=== PATIENT | female | born 1945 | race Asian ===

== ENCOUNTER 2023-02-27 13:28 | Inpatient (IN) | payer MEDICARE, MEDICAID ==
[~2023-02-27] VITALS: Ht 154.7 cm; Wt 56.6 kg
[2023-02-27] MEDS ORDERED: AMLO-257 PO (13:59)
[2023-02-27] MEDS ORDERED: PRAM0.258 PO (13:59)
[2023-02-27] MEDS ORDERED: LOSA-382 PO (13:59)
[2023-02-27] MEDS ORDERED: FURO20TA4 PO (14:03)
[2023-02-27] MEDS ORDERED: AMLO10TA55 PO (14:03)
[2023-02-27] MEDS ORDERED: CLON0.1T2 PO (14:03)
[2023-02-27] MEDS ORDERED: CARB1TAB33 PO (14:03)
[2023-02-27] MEDS ORDERED: PRAM1TAB7 PO (14:03)
[2023-02-27] MEDS ORDERED: GABA-529 PO (14:03)
[2023-02-27] MEDS ORDERED: ESCI-8 PO (14:03)
[2023-02-27] MEDS ORDERED: ATOR10TA69 PO (14:03)
[2023-02-27] MEDS ORDERED: SODIUM CHLORIDE 0.9% 1,000 ML IV ONE (14:45)
[2023-02-27 14:58] LABS: BASOPHILS % (AUTO) 1.1 % (0.0-2.0); EOSINOPHILS % (AUTO) 3.3 % (1.0-6.0); HEMATOCRIT 39.7 % (36-46); HEMOGLOBIN 13.5 g/dL (12.0-16.0); LYMPHOCYTES # (AUTO) 1.5 K/uL (1.0-4.8); LYMPHOCYTES % (AUTO) 20.3 % (22.0-44.0); MEAN CORPUSCULAR HEMOGLOBIN 32.3 pg (26.0-34.0); MEAN CORPUSCULAR VOLUME 95 fL (80-100); MONOCYTES # (AUTO) 0.5 K/uL (0.1-1.0); MONOCYTES % (AUTO) 6.3 % (2.0-9.0); NEUTROPHILS # (AUTO) 5.1 K/uL (1.8-7.7); PLATELET COUNT (AUTO) 159 K/uL (150-450); RED BLOOD CELL COUNT(AUTO) 4.18 MIL/uL (4.00-5.20); RED CELL DISTRIBUTION WIDTH 12.4 % (11.5-14.5)
[2023-02-27] MEDS ORDERED: BISACODYL 10 MG RECTAL RECTAL SUPPOSITORY PR PRN (15:00)
[2023-02-27] MEDS ORDERED: ONDANSETRON HCL 4 MG/2 ML VIAL IVP PRN (15:00)
[2023-02-27] MEDS ORDERED: ACETAMINOPHEN 325 MG TABLET PO PRN (15:00)
[2023-02-27 15:03] LABS: COVID AG,FIA SOURCE NASOPHARYNGEAL
[2023-02-27 15:10] LABS: CALCIUM, TOTAL 9.4 mg/dL (8.8-10.5); CREATININE 0.99 mg/dL (0.60-1.30); POTASSIUM 3.9 mmol/L (3.5-5.1)
[2023-02-27 15:16] LABS: LACTIC ACID 0.7 mmol/L (0.4-2.0)
[2023-02-27 15:22] LABS: ALBUMIN 3.3 g/dL (3.4-5.0); BILIRUBIN,TOTAL 0.5 mg/dL (0.1-1.0); TOTAL PROTEIN, SERUM 6.7 g/dL (6.4-8.2)
[2023-02-27] MEDS: HEPARIN SODIUM,PORCINE 5,000 UNITS/ML VIAL SQ SCH ×2 (16:21→23:39)
[2023-02-27 17:23] LABS: APPEARANCE,URINE HAZY (CLEAR); BILIRUBIN,URINE NEGATIVE (NEGATIVE); GLUCOSE, URINE (UA) NEGATIVE (NEGATIVE); KETONES,URINE NEGATIVE (NEGATIVE); LEUKOCYTE ESTERASE ,URINE LARGE (NEGATIVE); NITRATE,URINE NEGATIVE (NEGATIVE); OCCULT BLOOD,URINE NEGATIVE (NEGATIVE); PROTEIN,URINE TRACE mg/dL (NEGATIVE); SPECIFIC GRAVITIY, URINE 1.022 (1.003-1.030)
[2023-02-27 17:29] LABS: AMORPHOUS SEDIMENT,UR Moderate /LPF (None Seen); BACTERIA,URINE Few /HPF (None Seen); RBC,URINE 0-2 /HPF (0-2); SQUAMOUS EPITHELIAL CELL,UR Moderate /LPF (None Seen)
[2023-02-27] MEDS: CefTRIAXone 1 GM/DEXTROSE 50 ML IV SCH (18:06)
[2023-02-27 19:56] VITALS: BP 177/91; PULSE 65; RESP 19; TEMP 97.7
[2023-02-27] MEDS: HydrALAZINE HCL 20 MG/ML VIAL IVP PRN (20:04)
[2023-02-27 23:48] VITALS: BP 146/80; PULSE 71; RESP 20; TEMP 97.6
[2023-02-28 05:20] VITALS: BP 154/80; PULSE 69; RESP 20; TEMP 98.2
[2023-02-28 07:13] VITALS: BP 171/88; PULSE 72; RESP 18; TEMP 98.8
[2023-02-28] MEDS: PANTOPRAZOLE SODIUM 40 MG/VIAL IVP SCH (08:27)
[2023-02-28] MEDS: HEPARIN SODIUM,PORCINE 5,000 UNITS/ML VIAL SQ SCH ×3 (08:27→23:31)
[2023-02-28] MEDS: CARBIDOPA/LEVODOPA 10-100 MG TABLET PO SCH ×2 (15:08→21:09)
[2023-02-28 15:43] VITALS: BP 175/83; PULSE 75; RESP 18; TEMP 97.7
[2023-02-28] MEDS: HydrALAZINE HCL 20 MG/ML VIAL IVP PRN (15:58)
[2023-02-28] MEDS: CefTRIAXone 1 GM/DEXTROSE 50 ML IV SCH (17:35)
[2023-02-28 18:30] VITALS: BP 131/62
[2023-02-28] MEDS ORDERED: CloNIDine HCL 0.1 MG TABLET PO SCH (19:00)
[2023-02-28 19:34] VITALS: BP 120/63; PULSE 87; RESP 18; TEMP 97.5
[2023-03-01] VITALS (7 sets, daily range): BP systolic 130–165; BP diastolic 67–84; PULSE 67–92; RESP 16–18; TEMP 97.9–98.9
[2023-03-01] MEDS: HEPARIN SODIUM,PORCINE 5,000 UNITS/ML VIAL SQ SCH (08:40)
[2023-03-01] MEDS: CARBIDOPA/LEVODOPA 10-100 MG TABLET PO SCH (08:40)
[2023-03-01] MEDS ORDERED: LOSARTAN POTASSIUM 50 MG TABLET PO SCH (09:00)
[2023-03-01] MEDS ORDERED: AmLODIPine BESYLATE 10 MG TABLET PO SCH (09:00)
[2023-03-01] MEDS ORDERED: ATORVASTATIN CALCIUM 10 MG TABLET PO SCH (09:00)
[2023-03-01] MEDS: PANTOPRAZOLE SODIUM 40 MG/VIAL IVP SCH (09:54)
== END 2023-03-01 15:45 | DRG 690 ==
LOC: EMS 13:30 → 5N 18:09
PROVIDERS: ADMIT Internal Medicine; ATTEND Internal Medicine
DX: N39.0 Urinary tract infection, site not specified (principal); G93.40 Encephalopathy, unspecified; G20 Parkinson's disease; R62.7 Adult failure to thrive; R53.1 Weakness; Z20.822 Contact with and (suspected) exposure to COVID-19; N18.9 Chronic kidney disease, unspecified; I12.9 Hypertensive chronic kidney disease with stage 1 through stage 4 chronic kidney disease, or unspecified chronic kidney disease; E78.00 Pure hypercholesterolemia, unspecified; K21.9 Gastro-esophageal reflux disease without esophagitis; M19.90 Unspecified osteoarthritis, unspecified site; F32.A Depression, unspecified; Z68.23 Body mass index [BMI] 23.0-23.9, adult; Z79.899 Other long term (current) drug therapy
CPT/HCPCS: 51701; 70450; 71045; 80053; 81001; 83605; 83690; 84484; 85025; 87081; 92610; 93005; 97163; 97167; 97530; 97535; 99285; C9113; J0360; J0696; J1644; J7030; 36415-L1; 36415-TC

== ENCOUNTER 2023-03-01 15:34 | Inpatient (IN) | payer MEDICARE, MEDICAID ==
[~2023-03-01] VITALS: Ht 157.5 cm; Wt 54.9 kg
[~2023-03-01 15:34] MED LIST: AMLO10TA55 PO; ATOR10TA69 PO; CARB1TAB33 PO; CLON0.1T2 PO; ESCI-8 PO; FURO20TA4 PO; GABA-529 PO; LOSA-382 PO; PRAM1TAB7 PO
[2023-03-01 15:50] VITALS: BP 125/69; PULSE 72; RESP 18; TEMP 98.2; O2SAT 100
[2023-03-01] MEDS ORDERED: ACETAMINOPHEN 325 MG TABLET PO PRN (16:30)
[2023-03-01 19:00] VITALS: BP 115/62; PULSE 72; RESP 18
[2023-03-01 19:01] VITALS: BP 115/62; PULSE 72
[2023-03-01] MEDS: CloNIDine HCL 0.1 MG TABLET PO SCH (19:03)
[2023-03-01 21:00] VITALS: BP 141/74; PULSE 67; RESP 18; TEMP 98.3; O2SAT 99
[2023-03-01] MEDS: DOCUSATE SODIUM 100 MG CAPSULE PO SCH (21:12)
[2023-03-01] MEDS: CEPHALEXIN MONOHYDRATE 500 MG CAPSULE PO SCH (21:12)
[2023-03-01] MEDS: CARBIDOPA/LEVODOPA 10-100 MG TABLET PO SCH (21:13)
[2023-03-01] MEDS: MELATONIN 3 MG TABLET PO PRN (21:13)
[2023-03-02 08:05] VITALS: BP 128/68; PULSE 62; RESP 18; TEMP 97.5; O2SAT 100
[2023-03-02] MEDS: LOSARTAN POTASSIUM 50 MG TABLET PO SCH (08:06)
[2023-03-02] MEDS: DOCUSATE SODIUM 100 MG CAPSULE PO SCH ×2 (08:06→21:20)
[2023-03-02] MEDS: CEPHALEXIN MONOHYDRATE 500 MG CAPSULE PO SCH ×3 (08:07→21:20)
[2023-03-02] MEDS: ATORVASTATIN CALCIUM 10 MG TABLET PO SCH (08:07)
[2023-03-02] MEDS: AmLODIPine BESYLATE 10 MG TABLET PO SCH (08:07)
[2023-03-02] MEDS: CARBIDOPA/LEVODOPA 10-100 MG TABLET PO SCH ×3 (08:07→21:20)
[2023-03-02] MEDS: HEPARIN SODIUM,PORCINE 5,000 UNITS/ML VIAL SQ SCH (16:43)
[2023-03-02 18:42] VITALS: BP 128/68; PULSE 62; RESP 18; TEMP 97.5; O2SAT 100
[2023-03-02 19:00] VITALS: BP 125/70; PULSE 75
[2023-03-02] MEDS: CloNIDine HCL 0.1 MG TABLET PO SCH (19:07)
[2023-03-02 21:00] VITALS: BP 105/58; PULSE 65; RESP 18; TEMP 97.5; O2SAT 99
[2023-03-02] MEDS: MELATONIN 3 MG TABLET PO PRN (21:21)
[2023-03-03] MEDS: HEPARIN SODIUM,PORCINE 5,000 UNITS/ML VIAL SQ SCH ×3 (00:22→15:44)
[2023-03-03 08:05] VITALS: BP 120/58; PULSE 60; RESP 18; TEMP 97.7; O2SAT 100
[2023-03-03 08:05] LABS: CHOL/HDL RATIO 2.4 (3.9-5.7)
[2023-03-03] MEDS: CEPHALEXIN MONOHYDRATE 500 MG CAPSULE PO SCH ×3 (08:13→22:08)
[2023-03-03] MEDS: DOCUSATE SODIUM 100 MG CAPSULE PO SCH ×2 (08:13→22:08)
[2023-03-03] MEDS: ATORVASTATIN CALCIUM 10 MG TABLET PO SCH (08:13)
[2023-03-03] MEDS: LOSARTAN POTASSIUM 50 MG TABLET PO SCH (08:13)
[2023-03-03] MEDS: AmLODIPine BESYLATE 10 MG TABLET PO SCH (08:14)
[2023-03-03] MEDS: PANTOPRAZOLE SODIUM 40 MG DR TABLET PO SCH (08:14)
[2023-03-03] MEDS: CARBIDOPA/LEVODOPA 10-100 MG TABLET PO SCH ×3 (08:14→22:08)
[2023-03-03] MEDS ORDERED: SODIUM CHLORIDE 0.9% 1,000 ML ONE (09:50)
[2023-03-03] MEDS ORDERED: SODIUM CHLORIDE 0.9% 1,000 ML IV ONE (10:30)
[2023-03-03 18:30] VITALS: BP 128/73; PULSE 73
[2023-03-03] MEDS: CloNIDine HCL 0.1 MG TABLET PO SCH (19:00)
[2023-03-03 21:00] VITALS: BP 119/68; PULSE 64; RESP 18; TEMP 97.7; O2SAT 100
[2023-03-03] MEDS: DOCUSATE SODIUM 283 MG/5 ML MINI-ENEMA PR PRN (21:16)
[2023-03-03] MEDS: 0.9% SODIUM CHLORIDE 10 ML SYRINGE IVP SCH (22:07)
[2023-03-03] MEDS: MELATONIN 3 MG TABLET PO PRN (22:08)
[2023-03-04] MEDS: HEPARIN SODIUM,PORCINE 5,000 UNITS/ML VIAL SQ SCH ×3 (00:13→17:09)
[2023-03-04 09:00] VITALS: BP 152/82; PULSE 77; RESP 18; TEMP 98; O2SAT 96
[2023-03-04] MEDS: DOCUSATE SODIUM 100 MG CAPSULE PO SCH ×2 (09:15→20:46)
[2023-03-04] MEDS: ATORVASTATIN CALCIUM 10 MG TABLET PO SCH (09:15)
[2023-03-04] MEDS: AmLODIPine BESYLATE 10 MG TABLET PO SCH (09:15)
[2023-03-04] MEDS: CARBIDOPA/LEVODOPA 10-100 MG TABLET PO SCH ×3 (09:15→20:46)
[2023-03-04] MEDS: CEPHALEXIN MONOHYDRATE 500 MG CAPSULE PO SCH ×3 (09:16→20:46)
[2023-03-04] MEDS: LOSARTAN POTASSIUM 50 MG TABLET PO SCH (09:16)
[2023-03-04] MEDS: PANTOPRAZOLE SODIUM 40 MG DR TABLET PO SCH (09:16)
[2023-03-04] MEDS: 0.9% SODIUM CHLORIDE 10 ML SYRINGE IVP SCH ×2 (09:17→20:49)
[2023-03-04] MEDS: ESCITALOPRAM OXALATE 10 MG TABLET PO SCH (13:14)
[2023-03-04 18:49] VITALS: O2SAT 100
[2023-03-04 20:30] VITALS: BP 145/87; PULSE 76; RESP 18; TEMP 97.9; O2SAT 99
[2023-03-04] MEDS: CloNIDine HCL 0.1 MG TABLET PO SCH (20:46)
[2023-03-04] MEDS: MELATONIN 3 MG TABLET PO PRN (20:46)
[2023-03-04] MEDS: CARBAMIDE PEROXIDE 6.5% 15 ML OTIC SOLUTION AD SCH (20:47)
[2023-03-04] MEDS: ETHYL ALCOHOL 62% ANTISEPTIC NASAL SANITIZER 0.6 ML AMPUL NASAL SCH (21:37)
[2023-03-04] MEDS: SENNOSIDES 8.6 MG TABLET PO SCH (21:37)
[2023-03-04 22:47] VITALS: BP 114/64; PULSE 64; RESP 18; O2SAT 99
[2023-03-05] MEDS: HEPARIN SODIUM,PORCINE 5,000 UNITS/ML VIAL SQ SCH ×3 (00:05→15:29)
[2023-03-05 08:00] VITALS: BP 113/59; PULSE 66; RESP 18; TEMP 98.3; O2SAT 97
[2023-03-05] MEDS: CARBIDOPA/LEVODOPA 10-100 MG TABLET PO SCH ×3 (08:07→21:17)
[2023-03-05] MEDS: ETHYL ALCOHOL 62% ANTISEPTIC NASAL SANITIZER 0.6 ML AMPUL NASAL SCH ×2 (08:07→21:17)
[2023-03-05] MEDS: CEPHALEXIN MONOHYDRATE 500 MG CAPSULE PO SCH ×3 (08:07→21:17)
[2023-03-05] MEDS: PANTOPRAZOLE SODIUM 40 MG DR TABLET PO SCH (08:07)
[2023-03-05] MEDS: ATORVASTATIN CALCIUM 10 MG TABLET PO SCH (08:07)
[2023-03-05] MEDS: ESCITALOPRAM OXALATE 10 MG TABLET PO SCH (08:07)
[2023-03-05] MEDS: DOCUSATE SODIUM 250 MG CAPSULE PO SCH ×2 (08:07→21:17)
[2023-03-05] MEDS: LOSARTAN POTASSIUM 50 MG TABLET PO SCH (08:07)
[2023-03-05] MEDS: AmLODIPine BESYLATE 10 MG TABLET PO SCH (08:07)
[2023-03-05] MEDS: 0.9% SODIUM CHLORIDE 10 ML SYRINGE IVP SCH ×2 (08:15→21:00)
[2023-03-05 11:32] VITALS: BP 102/64; PULSE 70
[2023-03-05 18:19] VITALS: BP 128/62; PULSE 80
[2023-03-05] MEDS: CloNIDine HCL 0.1 MG TABLET PO SCH (18:22)
[2023-03-05 21:17] VITALS: BP 134/69; PULSE 78; RESP 18; TEMP 98.2; O2SAT 99
[2023-03-05] MEDS: MELATONIN 3 MG TABLET PO PRN (21:17)
[2023-03-05] MEDS: SENNOSIDES 8.6 MG TABLET PO SCH (21:17)
[2023-03-05] MEDS: CARBAMIDE PEROXIDE 6.5% 15 ML OTIC SOLUTION AD SCH (21:17)
[2023-03-06] MEDS: HEPARIN SODIUM,PORCINE 5,000 UNITS/ML VIAL SQ SCH ×4 (00:24→23:55)
[2023-03-06 08:10] VITALS: BP 141/67; PULSE 63; RESP 17; TEMP 98.1; O2SAT 100
[2023-03-06] MEDS: DOCUSATE SODIUM 250 MG CAPSULE PO SCH ×2 (08:51→20:54)
[2023-03-06] MEDS: ETHYL ALCOHOL 62% ANTISEPTIC NASAL SANITIZER 0.6 ML AMPUL NASAL SCH ×2 (08:51→20:54)
[2023-03-06] MEDS: ESCITALOPRAM OXALATE 10 MG TABLET PO SCH (08:52)
[2023-03-06] MEDS: CEPHALEXIN MONOHYDRATE 500 MG CAPSULE PO SCH (08:52)
[2023-03-06] MEDS: ATORVASTATIN CALCIUM 10 MG TABLET PO SCH (08:52)
[2023-03-06] MEDS: LOSARTAN POTASSIUM 50 MG TABLET PO SCH (08:52)
[2023-03-06] MEDS: CARBIDOPA/LEVODOPA 10-100 MG TABLET PO SCH ×3 (08:53→20:55)
[2023-03-06] MEDS: AmLODIPine BESYLATE 10 MG TABLET PO SCH (08:53)
[2023-03-06] MEDS: PANTOPRAZOLE SODIUM 40 MG DR TABLET PO SCH (08:53)
[2023-03-06 18:45] VITALS: BP 152/73; PULSE 70
[2023-03-06] MEDS: CloNIDine HCL 0.1 MG TABLET PO SCH (19:00)
[2023-03-06] MEDS: CARBAMIDE PEROXIDE 6.5% 15 ML OTIC SOLUTION AD SCH (20:53)
[2023-03-06] MEDS: SENNOSIDES 8.6 MG TABLET PO SCH (20:55)
[2023-03-07] VITALS (7 sets, daily range): BP systolic 86–135; BP diastolic 51–75; PULSE 61–71; RESP 18; TEMP 97.7–98.1; O2SAT 99–100
[2023-03-07] MEDS: HEPARIN SODIUM,PORCINE 5,000 UNITS/ML VIAL SQ SCH ×2 (08:31→15:56)
[2023-03-07] MEDS: CARBIDOPA/LEVODOPA 10-100 MG TABLET PO SCH ×3 (08:31→20:56)
[2023-03-07] MEDS: ETHYL ALCOHOL 62% ANTISEPTIC NASAL SANITIZER 0.6 ML AMPUL NASAL SCH ×2 (08:31→20:55)
[2023-03-07] MEDS: DOCUSATE SODIUM 250 MG CAPSULE PO SCH ×2 (08:31→20:56)
[2023-03-07] MEDS: ATORVASTATIN CALCIUM 10 MG TABLET PO SCH (08:32)
[2023-03-07] MEDS: ESCITALOPRAM OXALATE 10 MG TABLET PO SCH (08:32)
[2023-03-07] MEDS: PANTOPRAZOLE SODIUM 40 MG DR TABLET PO SCH (08:32)
[2023-03-07] MEDS: LOSARTAN POTASSIUM 50 MG TABLET PO SCH (09:11)
[2023-03-07] MEDS: AmLODIPine BESYLATE 10 MG TABLET PO SCH (09:11)
[2023-03-07] MEDS: DOCUSATE SODIUM 283 MG/5 ML MINI-ENEMA PR PRN (15:55)
[2023-03-07] MEDS: CloNIDine HCL 0.1 MG TABLET PO SCH (18:05)
[2023-03-07] MEDS: CARBAMIDE PEROXIDE 6.5% 15 ML OTIC SOLUTION AD SCH (20:55)
[2023-03-07] MEDS: SENNOSIDES 8.6 MG TABLET PO SCH (20:56)
[2023-03-08] MEDS: HEPARIN SODIUM,PORCINE 5,000 UNITS/ML VIAL SQ SCH ×3 (00:23→16:16)
[2023-03-08 08:00] VITALS: BP 146/76; PULSE 68; RESP 18; TEMP 97.8; O2SAT 100
[2023-03-08] MEDS: LOSARTAN POTASSIUM 50 MG TABLET PO SCH (09:16)
[2023-03-08] MEDS: ETHYL ALCOHOL 62% ANTISEPTIC NASAL SANITIZER 0.6 ML AMPUL NASAL SCH ×2 (09:16→20:37)
[2023-03-08] MEDS: DOCUSATE SODIUM 250 MG CAPSULE PO SCH ×2 (09:16→20:37)
[2023-03-08] MEDS: ESCITALOPRAM OXALATE 10 MG TABLET PO SCH (09:16)
[2023-03-08] MEDS: AmLODIPine BESYLATE 10 MG TABLET PO SCH (09:17)
[2023-03-08] MEDS: CARBIDOPA/LEVODOPA 10-100 MG TABLET PO SCH ×3 (09:17→20:38)
[2023-03-08] MEDS: PANTOPRAZOLE SODIUM 40 MG DR TABLET PO SCH (09:18)
[2023-03-08] MEDS: ATORVASTATIN CALCIUM 10 MG TABLET PO SCH (09:32)
[2023-03-08 10:59] VITALS: O2SAT 100
[2023-03-08 11:01] LABS: APPEARANCE,URINE CLEAR (CLEAR); BILIRUBIN,URINE NEGATIVE (NEGATIVE); GLUCOSE, URINE (UA) NEGATIVE (NEGATIVE); KETONES,URINE NEGATIVE (NEGATIVE); LEUKOCYTE ESTERASE ,URINE NEGATIVE (NEGATIVE); NITRATE,URINE NEGATIVE (NEGATIVE); OCCULT BLOOD,URINE NEGATIVE (NEGATIVE); PH,URINE 6.5 (5.0-8.0); PROTEIN,URINE NEGATIVE (NEGATIVE); SPECIFIC GRAVITIY, URINE 1.015 (1.003-1.030); UROBILINOGEN,URINE <=1.0 mg/dL (<=1.0)
[2023-03-08] MEDS: CloNIDine HCL 0.1 MG TABLET PO SCH (19:27)
[2023-03-08 20:36] VITALS: BP 157/83; PULSE 76; RESP 18; TEMP 98.3; O2SAT 100
[2023-03-08] MEDS: CARBAMIDE PEROXIDE 6.5% 15 ML OTIC SOLUTION AD SCH (20:36)
[2023-03-08] MEDS: SENNOSIDES 8.6 MG TABLET PO SCH (20:37)
[2023-03-09] MEDS: HEPARIN SODIUM,PORCINE 5,000 UNITS/ML VIAL SQ SCH ×4 (00:28→23:57)
[2023-03-09 08:05] VITALS: BP 138/64; PULSE 68; RESP 19; TEMP 98.5; O2SAT 98
[2023-03-09] MEDS: DOCUSATE SODIUM 250 MG CAPSULE PO SCH ×2 (08:10→21:36)
[2023-03-09] MEDS: ETHYL ALCOHOL 62% ANTISEPTIC NASAL SANITIZER 0.6 ML AMPUL NASAL SCH ×2 (08:10→21:36)
[2023-03-09] MEDS: CARBIDOPA/LEVODOPA 10-100 MG TABLET PO SCH ×3 (08:11→21:36)
[2023-03-09] MEDS: PANTOPRAZOLE SODIUM 40 MG DR TABLET PO SCH (08:11)
[2023-03-09] MEDS: LOSARTAN POTASSIUM 50 MG TABLET PO SCH (08:11)
[2023-03-09] MEDS: ATORVASTATIN CALCIUM 10 MG TABLET PO SCH (08:11)
[2023-03-09] MEDS: AmLODIPine BESYLATE 10 MG TABLET PO SCH (08:11)
[2023-03-09] MEDS: ESCITALOPRAM OXALATE 10 MG TABLET PO SCH (08:11)
[2023-03-09 18:53] VITALS: BP 139/60; PULSE 80; RESP 20
[2023-03-09] MEDS: CloNIDine HCL 0.1 MG TABLET PO SCH (18:54)
[2023-03-09 20:00] VITALS: BP 124/60; PULSE 72; RESP 19; TEMP 98.5; O2SAT 100
[2023-03-09] MEDS: CARBAMIDE PEROXIDE 6.5% 15 ML OTIC SOLUTION AD SCH (21:36)
[2023-03-09] MEDS: SENNOSIDES 8.6 MG TABLET PO SCH (21:36)
[2023-03-10 02:06] VITALS: O2SAT 100
[2023-03-10] MEDS ORDERED: DOCU-352 PO ×2 (03:20→09:36)
[2023-03-10] MEDS ORDERED: PANT-31 PO ×2 (03:20→09:36)
[2023-03-10] MEDS ORDERED: SENN-338 PO (03:20)
[2023-03-10] MEDS: CARBIDOPA/LEVODOPA 10-100 MG TABLET PO SCH (08:25)
[2023-03-10] MEDS: AmLODIPine BESYLATE 10 MG TABLET PO SCH (08:25)
[2023-03-10] MEDS: LOSARTAN POTASSIUM 50 MG TABLET PO SCH (08:25)
[2023-03-10] MEDS: PANTOPRAZOLE SODIUM 40 MG DR TABLET PO SCH (08:25)
[2023-03-10] MEDS: HEPARIN SODIUM,PORCINE 5,000 UNITS/ML VIAL SQ SCH (08:25)
[2023-03-10] MEDS: ETHYL ALCOHOL 62% ANTISEPTIC NASAL SANITIZER 0.6 ML AMPUL NASAL SCH (08:25)
[2023-03-10] MEDS: ATORVASTATIN CALCIUM 10 MG TABLET PO SCH (08:25)
[2023-03-10] MEDS: DOCUSATE SODIUM 250 MG CAPSULE PO SCH (08:25)
[2023-03-10] MEDS: ESCITALOPRAM OXALATE 10 MG TABLET PO SCH (08:25)
[2023-03-10 09:27] VITALS: BP 120/68; PULSE 69; RESP 19; TEMP 98; O2SAT 99
[2023-03-10] MEDS ORDERED: CARB-49 PO (09:36)
[2023-03-10] MEDS ORDERED: CLON0.1T2 PO (09:36)
[2023-03-10] MEDS ORDERED: SENN-277 PO (09:36)
[2023-03-10] MEDS ORDERED: ATOR10TA69 PO (09:36)
[2023-03-10] MEDS ORDERED: AMLO-258 PO (09:36)
[2023-03-10] MEDS ORDERED: ESCI-8 PO (09:36)
[2023-03-10] MEDS ORDERED: LOSA-382 PO (09:36)
[2023-03-10 10:00] VITALS: O2SAT 99
== END 2023-03-10 13:45 | disposition home health service (06) | DRG 56 ==
LOC: 2WR 16:02
PROVIDERS: ADMIT Physical Medicine & Rehabilitation; ATTEND Physical Medicine & Rehabilitation
DX: G20 Parkinson's disease (principal); G93.41 Metabolic encephalopathy; N39.0 Urinary tract infection, site not specified; E78.5 Hyperlipidemia, unspecified; I10 Essential (primary) hypertension; F32.A Depression, unspecified; I95.9 Hypotension, unspecified; E86.0 Dehydration; M19.90 Unspecified osteoarthritis, unspecified site; R13.11 Dysphagia, oral phase; R26.9 Unspecified abnormalities of gait and mobility; R53.81 Other malaise; R41.89 Other symptoms and signs involving cognitive functions and awareness; R49.0 Dysphonia; Z79.899 Other long term (current) drug therapy
CPT/HCPCS: 80061; 81003; 87081; 92507; 92523; 97110; 97112; 97116; 97162; 97166; 97530; 97535; 99285; 99366; J1644; J7030

== ENCOUNTER 2023-05-07 16:53 | Inpatient (IN) | payer MEDICARE, MEDICAID ==
[~2023-05-07] VITALS: Ht 157.5 cm; Wt 48.5 kg
[~2023-05-07 16:53] MED LIST changes: +AMLO-258 PO; +CARB-49 PO; +DOCU-412 PO; -FURO20TA4 PO; -GABA-529 PO; +PANT-31 PO; -PRAM1TAB7 PO; +SENN-277 PO; +SENN-338 PO
[2023-05-07] MEDS ORDERED: LABETALOL HCL 5 MG/ML 20 ML VIAL IVP PRN ×2 (17:00)
[2023-05-07 17:37] LABS: EOSINOPHILS % (AUTO) 1.6 % (1.0-6.0); HEMATOCRIT 34.8 % (36-46); HEMOGLOBIN 11.6 g/dL (12.0-16.0); LYMPHOCYTES # (AUTO) 0.7 K/uL (1.0-4.8); LYMPHOCYTES % (AUTO) 15.7 % (22.0-44.0); MEAN CORPUSCULAR HEMOGLOBIN 31.8 pg (26.0-34.0); MEAN CORPUSCULAR HGB CONC 33.4 G/dL (31.0-37.0); MEAN CORPUSCULAR VOLUME 95 fL (80-100); MONOCYTES # (AUTO) 0.3 K/uL (0.1-1.0); MONOCYTES % (AUTO) 6.8 % (2.0-9.0); NEUTROPHILS # (AUTO) 3.6 K/uL (1.8-7.7); NEUTROPHILS % (AUTO) 74.9 % (40.0-70.0); PLATELET COUNT (AUTO) 159 K/uL (150-450); RED BLOOD CELL COUNT(AUTO) 3.65 MIL/uL (4.00-5.20); RED CELL DISTRIBUTION WIDTH 13.8 % (11.5-14.5); WHITE BLOOD COUNT (AUTO) 4.7 K/uL (4.5-11.0)
[2023-05-07] MEDS ORDERED: ASPIRIN 81 MG CHEWABLE TABLET PO ONE (17:45)
[2023-05-07] MEDS ORDERED: CLOPIDOGREL BISULFATE 75 MG TABLET PO ONE (17:45)
[2023-05-07 17:46] LABS: CALCIUM, TOTAL 9.1 mg/dL (8.8-10.5); CREATININE 1.02 mg/dL (0.60-1.30); POTASSIUM 3.6 mmol/L (3.5-5.1)
[2023-05-07 17:51] LABS: INR 1.2 (0.9-1.1); PROTHROMBIN TIME 12.4 SEC (9.4-11.6)
[2023-05-07 17:52] LABS: ALBUMIN 2.9 g/dL (3.4-5.0); BILIRUBIN,TOTAL 0.7 mg/dL (0.1-1.0); TOTAL PROTEIN, SERUM 5.5 g/dL (6.4-8.2)
[2023-05-07 17:57] LABS: TROPONIN I-HIGH SENSITIVITY 89 ng/L (<51)
[2023-05-07 18:59] LABS: APPEARANCE,URINE CLEAR (CLEAR); BILIRUBIN,URINE NEGATIVE (NEGATIVE); COLOR,URINE LIGHT YELLOW (YELLOW); GLUCOSE, URINE (UA) NEGATIVE (NEGATIVE); KETONES,URINE NEGATIVE (NEGATIVE); LEUKOCYTE ESTERASE ,URINE NEGATIVE (NEGATIVE); NITRATE,URINE NEGATIVE (NEGATIVE); OCCULT BLOOD,URINE NEGATIVE (NEGATIVE); PH,URINE 6.5 (5.0-8.0); PROTEIN,URINE NEGATIVE (NEGATIVE); SPECIFIC GRAVITIY, URINE 1.036 (1.003-1.030); UROBILINOGEN,URINE <=1.0 mg/dL (<=1.0)
[2023-05-07 19:18] LABS: ALCOHOL, URINE DRUG SCREEN NEGATIVE (NEGATIVE); AMPHET/METH SCREEN,URINE NEGATIVE (NEGATIVE); BARBITURATE SCREEN, URINE NEGATIVE (NEGATIVE); BENZODIAZEPINES SCREEN,URINE NEGATIVE (NEGATIVE); CANNABINOID SCREEN,URINE NEGATIVE (NEGATIVE); COCAINE SCREEN,URINE NEGATIVE (NEGATIVE); METHADONE SCREEN, URINE NEGATIVE (NEGATIVE); OPIATE SCREEN,URINE NEGATIVE (NEGATIVE); PHENCYCLIDINE SCREEN,URINE NEGATIVE (NEGATIVE)
[2023-05-07 19:28] LABS: PH,URINE DRUG SCREEN 6.5 (5.0-8.0)
[2023-05-07] MEDS ORDERED: GADOTERATE MEGLUMINE 10 MMOL/20 ML VIAL IVP ONE (19:43)
[2023-05-07] MEDS ORDERED: INSULIN LISPRO 100 UNITS/ML SQ PRN (19:45)
[2023-05-07] MEDS ORDERED: DEXTROSE 50%-WATER 25 GM/50 ML SYRINGE IVP PRN (19:45)
[2023-05-07] MEDS ORDERED: ONDANSETRON HCL 4 MG/2 ML VIAL IVP PRN (19:45)
[2023-05-07 20:21] LABS: RBC,URINE None Seen /HPF (0-2)
[2023-05-07 20:22] LABS: BACTERIA,URINE None Seen /HPF (None Seen); WBC,URINE 0-2 /HPF (0-5)
[2023-05-07] MEDS: ATORVASTATIN CALCIUM 40 MG TABLET PO SCH ×2 (20:40→22:12)
[2023-05-07] MEDS ORDERED: ATORVASTATIN CALCIUM 40 MG TABLET PO ONE (20:45)
[2023-05-07 20:46] LABS: COVID AG,FIA SOURCE NASAL SWAB
[2023-05-07 20:53] LABS: TROPONIN I-HIGH SENSITIVITY 94 ng/L (<51)
[2023-05-07 21:02] LABS: SARS-COV2 (COVID) ANTIGEN,FIA Negative (Negative)
[2023-05-07 21:37] VITALS: BP 161/89; PULSE 65; RESP 20; TEMP 98
[2023-05-08 00:06] VITALS: BP 120/72; PULSE 56; RESP 16; TEMP 98.2
[2023-05-08] MEDS: HEPARIN SODIUM,PORCINE 5,000 UNITS/ML VIAL SQ SCH ×3 (00:06→16:35)
[2023-05-08 02:26] LABS: TROPONIN I-HIGH SENSITIVITY 82 ng/L (<51)
[2023-05-08 05:08] VITALS: BP 150/115; PULSE 77; RESP 18; TEMP 97.8
[2023-05-08 05:50] LABS: EOSINOPHILS % (AUTO) 2.6 % (1.0-6.0); HEMATOCRIT 39.6 % (36-46); HEMOGLOBIN 13.3 g/dL (12.0-16.0); LYMPHOCYTES # (AUTO) 2.2 K/uL (1.0-4.8); LYMPHOCYTES % (AUTO) 32.1 % (22.0-44.0); MEAN CORPUSCULAR HEMOGLOBIN 31.6 pg (26.0-34.0); MEAN CORPUSCULAR HGB CONC 33.6 G/dL (31.0-37.0); MEAN CORPUSCULAR VOLUME 94 fL (80-100); MONOCYTES # (AUTO) 0.7 K/uL (0.1-1.0); MONOCYTES % (AUTO) 9.6 % (2.0-9.0); NEUTROPHILS # (AUTO) 3.7 K/uL (1.8-7.7); NEUTROPHILS % (AUTO) 54.7 % (40.0-70.0); PLATELET COUNT (AUTO) 173 K/uL (150-450); RED BLOOD CELL COUNT(AUTO) 4.21 MIL/uL (4.00-5.20); WHITE BLOOD COUNT (AUTO) 6.7 K/uL (4.5-11.0)
[2023-05-08 06:10] LABS: ANION GAP 10 mmol/L (8-16); CALCIUM, TOTAL 10.2 mg/dL (8.8-10.5); CARBON DIOXIDE 25 mmol/L (22-29); CHLORIDE 106 mmol/L (98-107); CHOL/HDL RATIO 2.9 (3.9-5.7); CHOLESTEROL 174 mg/dL (131-200); CREATININE 0.88 mg/dL (0.60-1.30); GLOMERULAR FILTR. RATE CALC > 60 mL/min (>60); GLUCOSE,RANDOM 87 mg/dL (70-110); HDL CHOLESTEROL 61 mg/dL (40-60); LDL CHOL (CALC.) 97 mg/dL (0-130); POTASSIUM 3.5 mmol/L (3.5-5.1); SODIUM SERUM 141 mmol/L (136-145); TRIGLYCERIDES 78 mg/dL (15-150); UREA NITROGEN, BLOOD 20 mg/dL (7-18)
[2023-05-08 06:21] LABS: TROPONIN I-HIGH SENSITIVITY 79 ng/L (<51)
[2023-05-08 08:31] VITALS: BP 148/79; PULSE 64; RESP 18; TEMP 98.5
[2023-05-08 09:11] LABS: GLUCOMETER DEV NAME(LOC) 5N.2C; GLUCOSE,POINT OF CARE 156 MG/DL (70-110)
[2023-05-08 09:11] LABS: GLUCOMETER DEV NAME(LOC) 5N.2C; GLUCOSE,POINT OF CARE 84 MG/DL (70-110)
[2023-05-08 11:48] VITALS: BP 136/74; PULSE 63; RESP 18; TEMP 97.6
[2023-05-08 15:40] VITALS: BP 142/81; PULSE 77; RESP 18; TEMP 98.1
[2023-05-08] MEDS ORDERED: MAGNESIUM HYDROXIDE SUSPENSION 30 ML UDCUP PO PRN (16:30)
[2023-05-08 18:26] LABS: GLUCOMETER DEV NAME(LOC) 5N.2C; GLUCOSE,POINT OF CARE 112 MG/DL (70-110)
[2023-05-08 18:26] LABS: GLUCOMETER DEV NAME(LOC) 5N.2C; GLUCOSE,POINT OF CARE 127 MG/DL (70-110)
[2023-05-08 20:00] VITALS: BP 133/74; PULSE 65; RESP 17; TEMP 98
[2023-05-08] MEDS: DOCUSATE SODIUM 100 MG CAPSULE PO SCH (21:59)
[2023-05-08] MEDS: ATORVASTATIN CALCIUM 40 MG TABLET PO SCH (21:59)
[2023-05-08] MEDS: ACETAMINOPHEN 325 MG TABLET PO PRN (22:00)
[2023-05-08 23:11] LABS: GLUCOMETER DEV NAME(LOC) 5N.1C; GLUCOSE,POINT OF CARE 130 MG/DL (70-110)
[2023-05-09] VITALS (7 sets, daily range): BP systolic 111–148; BP diastolic 52–80; PULSE 62–95; RESP 17–20; TEMP 97.6–98.6
[2023-05-09] MEDS: HEPARIN SODIUM,PORCINE 5,000 UNITS/ML VIAL SQ SCH ×3 (00:48→16:34)
[2023-05-09] MEDS: DOCUSATE SODIUM 100 MG CAPSULE PO SCH ×2 (08:48→21:06)
[2023-05-09] MEDS: ACETAMINOPHEN 325 MG TABLET PO PRN ×2 (08:51→16:44)
[2023-05-09] MEDS: AmLODIPine BESYLATE 5 MG TABLET PO SCH (12:26)
[2023-05-09 13:46] LABS: GLUCOMETER DEV NAME(LOC) 5N.1C; GLUCOSE,POINT OF CARE 131 MG/DL (70-110)
[2023-05-09] MEDS: CARBIDOPA/LEVODOPA 10-100 MG TABLET PO SCH ×2 (16:34→21:07)
[2023-05-09 20:06] LABS: GLUCOMETER DEV NAME(LOC) 5N.2C; GLUCOSE,POINT OF CARE 150 MG/DL (70-110)
[2023-05-10] MEDS: HEPARIN SODIUM,PORCINE 5,000 UNITS/ML VIAL SQ SCH ×3 (00:27→16:06)
[2023-05-10] MEDS: ACETAMINOPHEN 325 MG TABLET PO PRN ×2 (01:02→06:22)
[2023-05-10 02:31] LABS: GLUCOMETER DEV NAME(LOC) 6N.2B; GLUCOSE,POINT OF CARE 108 MG/DL (70-110)
[2023-05-10 04:00] VITALS: BP 137/62; PULSE 80; TEMP 98
[2023-05-10] MEDS: CARBIDOPA/LEVODOPA 10-100 MG TABLET PO SCH ×2 (08:34→16:07)
[2023-05-10] MEDS: DOCUSATE SODIUM 100 MG CAPSULE PO SCH (08:34)
[2023-05-10] MEDS: AmLODIPine BESYLATE 5 MG TABLET PO SCH (08:34)
[2023-05-10 08:45] VITALS: BP 128/77; PULSE 77; RESP 20; TEMP 98.1
[2023-05-10] MEDS ORDERED: AmLODIPine BESYLATE 10 MG TABLET PO SCH (09:00)
[2023-05-10] MEDS ORDERED: ATORVASTATIN CALCIUM 10 MG TABLET PO SCH (09:00)
[2023-05-10 11:36] LABS: GLUCOMETER DEV NAME(LOC) 6N.2B; GLUCOSE,POINT OF CARE 110 MG/DL (70-110)
[2023-05-10] MEDS ORDERED: ACET-2247 PO (15:10)
[2023-05-10 16:48] VITALS: BP 126/72; PULSE 78; RESP 19; TEMP 98.3
[2023-05-10 17:31] LABS: GLUCOMETER DEV NAME(LOC) 6S.2; GLUCOSE,POINT OF CARE 115 MG/DL (70-110)
[2023-05-10 23:01] LABS: GLUCOMETER DEV NAME(LOC) 5S.1B; GLUCOSE,POINT OF CARE 87 MG/DL (70-110)
== END 2023-05-10 18:20 | DRG 71 ==
LOC: EMS 16:54 → 5S 19:12 → 6S 05-09 18:05
PROVIDERS: ADMIT Internal Medicine; ATTEND Internal Medicine
DX: G93.41 Metabolic encephalopathy (principal); F02.83 Dementia in other diseases classified elsewhere, unspecified severity, with mood disturbance; Z68.1 Body mass index [BMI] 19.9 or less, adult; D32.0 Benign neoplasm of cerebral meninges; R62.7 Adult failure to thrive; N18.9 Chronic kidney disease, unspecified; E78.00 Pure hypercholesterolemia, unspecified; M19.90 Unspecified osteoarthritis, unspecified site; K21.9 Gastro-esophageal reflux disease without esophagitis; R79.89 Other specified abnormal findings of blood chemistry; I12.9 Hypertensive chronic kidney disease with stage 1 through stage 4 chronic kidney disease, or unspecified chronic kidney disease; F32.A Depression, unspecified; G20.A1 Parkinson's disease without dyskinesia, without mention of fluctuations; R29.708 NIHSS score 8; Z86.73 Personal history of transient ischemic attack (TIA), and cerebral infarction without residual deficits; Z79.899 Other long term (current) drug therapy; Z20.822 Contact with and (suspected) exposure to COVID-19
CPT/HCPCS: 51702; 70496; 70498; 70553; 71045; 80048; 80053; 80061; 80307; 81001; 82948; 82962; 83036; 83735; 84484; 85025; 85610; 85730; 86850; 86900; 86901; 92523; 92526; 92610; 93005; 93306; 97110; 97112; 97116; 97163; 97166; 97530; 97535; 99291; J1644; 36415-L1; 36415-TC; 70450; 70450-TC